=== PATIENT | female | born 1980 | race Caucasian/White ===

== ENCOUNTER → 2021-07-23 | Outpatient (CLI) | payer OTHER ==
[2021-07-23 16:51] LABS: BASOPHILS # (AUTO) 0.1 10^3/uL (0.0-0.1); BASOPHILS % (AUTO) 1 % (0-10); EOSINOPHILS # (AUTO) 0.2 10^3/uL (0.0-0.3); EOSINOPHILS % (AUTO) 2 % (0-10); HEMATOCRIT 32 % (35-52); HEMOGLOBIN 9.8 g/dL (11.5-16.0); LYMPHOCYTES # (AUTO) 2.7 10^3/uL (1.0-4.0); LYMPHOCYTES % (AUTO) 29 % (12-44); MEAN CORPUSCULAR HEMOGLOBIN 26 pg (25-34); MEAN CORPUSCULAR HGB CONC 31 g/dL (32-36); MEAN CORPUSCULAR VOLUME 84 fL (80-99); MEAN PLATELET VOLUME 9.5 fL (9.0-12.2); MONOCYTES # (AUTO) 0.6 10^3/uL (0.0-1.0); MONOCYTES % (AUTO) 6 % (0-12); NEUTROPHILS # (AUTO) 5.7 10^3/uL (1.8-7.8); NEUTROPHILS % (AUTO) 62 % (42-75); PLATELET COUNT 488 10^3/uL (130-400); WHITE BLOOD COUNT 9.3 10^3/uL (4.3-11.0)
== END ==
LOC: LABNPT 16:34
PROVIDERS: ATTEND Obstetrics & Gynecology
DX: N93.9 Abnormal uterine and vaginal bleeding, unspecified (principal)
CPT/HCPCS: 84443; 85025

== ENCOUNTER 2021-07-26 05:38 | Outpatient (CLI) | payer SELFPAY ==
[~2021-07-26] VITALS: Ht 170 cm; Wt 79.5 kg
== END 2021-07-26 09:36 | disposition home or self-care (01) ==
LOC: PREOP 05:38
PROVIDERS: ATTEND Obstetrics & Gynecology
DX: Z01.818 Encounter for other preprocedural examination (principal)

== ENCOUNTER 2021-07-29 06:16 | Day surgery (SDC) | payer OTHER ==
[~2021-07-29] VITALS: Ht 170 cm; Wt 79.5 kg
[2021-07-29] VITALS (9 sets, daily range): BP systolic 100–131; BP diastolic 65–88
[2021-07-29] MEDS ORDERED: HYDROCORTISONE 100 MG/2 ML (Solu-CORTEF) VIAL IV PRN (06:45)
[2021-07-29] MEDS ORDERED: IRON DEXTRAN INJECTION 1,000 MG in NS (IVPB) 250 ML IV ONE (06:45)
[2021-07-29] MEDS ORDERED: diphenhydrAMINE 50 MG/ML INJ (BENADRYL) IV PRN (06:45)
[2021-07-29] MEDS ORDERED: NS IV 500 ML 500 ML IV SCH (06:45)
[2021-07-29] MEDS ORDERED: IRON DEXTRAN 25 MG/NS 6.25 ML TOTAL VOLUME IV ONE ×3 (06:45)
[2021-07-29] MEDS ORDERED: IRON DEXTRAN 1,000 MG/NS 250 ML IVPB IV ONE ×2 (06:45)
[2021-07-29] MEDS ORDERED: EPINEPHrine INJECTION 1 MG/ML AMP IM PRN (06:45)
[2021-07-29] MEDS ORDERED: RT-ALBUTEROL SULF 2.5 MG/3 ML PRE-MIX VIAL IH PRN (06:45)
[2021-07-29 06:56] LABS: BASOPHILS # (AUTO) 0.1 10^3/uL (0.0-0.1); BASOPHILS % (AUTO) 1 % (0-10); EOSINOPHILS # (AUTO) 0.1 10^3/uL (0.0-0.3); EOSINOPHILS % (AUTO) 1 % (0-10); HEMATOCRIT 32 % (35-52); HEMOGLOBIN 10.1 g/dL (11.5-16.0); LYMPHOCYTES # (AUTO) 2.1 10^3/uL (1.0-4.0); LYMPHOCYTES % (AUTO) 21 % (12-44); MEAN CORPUSCULAR HEMOGLOBIN 26 pg (25-34); MEAN CORPUSCULAR HGB CONC 32 g/dL (32-36); MEAN CORPUSCULAR VOLUME 80 fL (80-99); MEAN PLATELET VOLUME 9.3 fL (9.0-12.2); MONOCYTES # (AUTO) 0.7 10^3/uL (0.0-1.0); MONOCYTES % (AUTO) 7 % (0-12); NEUTROPHILS # (AUTO) 6.9 10^3/uL (1.8-7.8); NEUTROPHILS % (AUTO) 70 % (42-75); PLATELET COUNT 494 10^3/uL (130-400); WHITE BLOOD COUNT 9.8 10^3/uL (4.3-11.0)
[2021-07-29] MEDS: LACTATED RINGERS 1,000 ML IV PRN ×2 (07:15→08:40)
[2021-07-29] MEDS ORDERED: BUPIVACAINE 0.25% 10 ML (SENSORCAINE) VIAL ONE (07:25)
[2021-07-29 07:30] LABS: POTASSIUM 4.1 MMOL/L (3.6-5.0)
[2021-07-29 07:36] LABS: CREATININE SERUM 0.73 MG/DL (0.60-1.30)
[2021-07-29] MEDS ORDERED: LIDOCAINE PF 2% 5 ML (XYLOCAINE) VIAL ONE (08:45)
[2021-07-29] MEDS ORDERED: proPOfol 200 MG/20 ML (DIPRIVAN) VIAL IV ONE (08:45)
[2021-07-29] MEDS ORDERED: ONDANSETRON 4 MG/2 ML (SDV) Z0FRAN ONE (08:45)
[2021-07-29] MEDS ORDERED: MIDAZOLAM 2 MG/2 ML (VERSED) VIAL ONE (08:45)
[2021-07-29] MEDS ORDERED: fentaNYL INJ 100 MCG/2 ML AMP ONE (08:45)
[2021-07-29] MEDS ORDERED: SEVOFLURANE (ULTANE) 15 ML INHAL SOLN ONE ×2 (08:45→09:34)
--- NOTE | 2021-07-29 08:59 | Progress Note-Pre Operative ---
Pre-Operative Progress Note H&P Reviewed The H&P was reviewed, patient examined and no changes noted. Date Seen by Provider: July 29, 2021 Time Seen by Provider: 07:30 Date H&P Reviewed: July 29, 2021 Time H&P Reviewed: 07:30 Pre-Operative Diagnosis: AUB, Chronic blood loss anemia ANGIE LEHMAN DO July 29, 2021 08:59
[2021-07-29] MEDS ORDERED: D5 LR IV SOLUTION 1,000 ML IV SCH (09:00)
[2021-07-29] MEDS ORDERED: HYDROcodone/APAP 5 MG/325 MG (LORTAB) TAB PO PRN (09:00)
[2021-07-29] MEDS ORDERED: ONDANSETRON 4 MG/2 ML (SDV) Z0FRAN IVP PRN ×2 (09:00→09:45)
[2021-07-29] MEDS ORDERED: KETOROLAC 30 MG/ML VIAL IVP ONE (09:00)
--- NOTE | 2021-07-29 09:01 | Discharge Inst-Women's Service ---
Discharge Inst-Women's Serv Depart Medication/Instructions New, Converted or Re-Newed RX: Transmitted to Pharmacy Problems Reviewed?: Yes Consults/Follow Up Additional Follow Up: Yes Activity Activity: Activity as Tolerated Driving Instructions: No Driving for 1 Week NO SMOKING: NO SMOKING Nothing Inside Vagina: No Douching, No [place], No Tampons Diet Discharge Diet: No Restrictions Symptoms to Report to : Bleeding Excessive, Pain Increased, Fever Over 101 Degrees F, Vaginal Bleeding Increase, Questions/Concerns For Any Problems or Questions: Contact Your Physician Skin/Wound Care Infection Signs and Symptoms: Increased Redness, Foul Odor of Wound, Increased Drainage, Skin Itchy or Has a Rash, Increased Swelling, Temperature Above 101 F ANGIE LEHMAN DO July 29, 2021 09:01
[2021-07-29] MEDS ORDERED: IBUP-1773 PO (09:03)
--- NOTE | 2021-07-29 09:42 | Anesthesia-General Post-Op ---
General Patient Condition Mental Status/LOC: Same as Preop Cardiovascular: Satisfactory Nausea/Vomiting: Absent Respiratory: Satisfactory Pain: Controlled Complications: Absent Post Op Complications Complications None Follow Up Care/Instructions Patient Instructions None needed. Anesthesia/Patient Condition Patient Condition Patient is doing well, no complaints, stable vital signs, no apparent adverse anesthesia problems. No complications reported per nursing. NICKOLAS GUTIERREZ CRNA July 29, 2021 09:42
[2021-07-29] MEDS ORDERED: MEPERIDINE (DEMEROL) INJ 50 MG/ML IVP ONE (09:45)
[2021-07-29] MEDS ORDERED: fentaNYL INJ 100 MCG/2 ML AMP IVP ONE (09:45)
[2021-07-29] MEDS ORDERED: morphine INJ 10 MG/ML 1ML (SYR OR VIAL) IVP ONE (09:45)
[2021-07-29] MEDS ORDERED: KETOROLAC 30 MG/ML VIAL ONE (09:49)
--- NOTE | 2021-07-29 15:43 | OPERATIVE REPORT ---
DATE OF SERVICE: 07/29/2021 PREOPERATIVE DIAGNOSES: 1. A 41-year-old female with abnormal uterine bleeding. 2. Chronic blood loss anemia. POSTOPERATIVE DIAGNOSES: 1. A 41-year-old female with abnormal uterine bleeding. 2. Chronic blood loss anemia. PROCEDURE: D and C. SURGEON: Angie Lehman DO ANESTHESIA: LMA general. ESTIMATED BLOOD LOSS: Minimal. URINE OUTPUT: 100 mL drained at the end of the procedure. FLUIDS: 1500 mL lactated Ringer's solution. FINDINGS: Normal appearing external female genitalia and a moderate amount of endometrial tissue collected on curetting. SPECIMEN SENT: Endometrial curettings. INDICATIONS FOR PROCEDURE: This 41-year-old female patient who had sought care in my office for feeling lightheaded and dizzy and weak and also having constant heavy periods, sometimes lasting 50 to 60 days. I discussed with the patient need for endometrial sampling due to her age and body habitus. Risks of the procedure were discussed with the patient in detail, both endometrial biopsy in the office and D and C. The patient wished to proceed with D and C as it would be another conservative measure of dealing with this as well as give us diagnostic value. Risk of the procedure and alternatives were discussed with the patient in detail. After all of her questions were answered, consent was obtained in the preoperative area, the patient was taken to the operating room. OPERATIVE REPORT IN DETAIL: Once in the operating room, anesthesia was found to be adequate. She was placed in dorsal lithotomy position, prepped and draped in normal sterile fashion where a timeout was performed. A weighted speculum inserted to the patient's vagina. Right angle retractor was used to visualize the cervix, which was grasped 12 o'clock position using a long Allis clamp. I then gently sound the uterine cavity, was found to be 8 cm. I then gently dilated the cervix using Hanks dilators to maximum dilatation of 1 cm. I performed paracervical block at this point using 0.25% Marcaine with 5 mL are injected into each site, which are 3 and 9 o'clock positions on the cervix. Care was taken to aspirate for injecting. I then gently perform curettage of the uterus and the endometrial curettings collected and sent as endometrial curettings. There was no active bleeding noted from the uterus after I am done curettings. I then removed the Allis clamp and weighted speculum, and everything was removed from the patient's vagina. The patient tolerated the procedure well and sent to recovery area in stable condition. Lap and sponge counts were correct at the end of procedure. Instrument counts correct as well. Job ID: [id number] DocumentID: [id number] Dictated Date: 07/29/2021 10:00:01 Head Swamper Date: 07/29/2021 15:42:39 Dictated By: ANGIE LEHMAN DO
== END 2021-07-29 11:15 | disposition home or self-care (01) ==
LOC: SDC 06:16
PROVIDERS: ATTEND Obstetrics & Gynecology
DX: N93.9 Abnormal uterine and vaginal bleeding, unspecified (principal); D50.0 Iron deficiency anemia secondary to blood loss (chronic); E66.9 Obesity, unspecified; N87.0 Mild cervical dysplasia; Z68.30 Body mass index [BMI] 30.0-30.9, adult
CPT/HCPCS: 36415; 80048; 84703; 85025; 86850; 86900; 86901; 87081

== ENCOUNTER 2021-08-23 05:35 | Outpatient (CLI) | payer SELFPAY ==
[~2021-08-23] VITALS: Ht 170 cm; Wt 79.5 kg
[~2021-08-23 05:35] MED LIST: IBUP-1773 PO
[2021-08-23] MEDS ORDERED: QUET50TA PO (09:47)
[2021-08-23] MEDS ORDERED: MULT-436 PO (09:47)
[2021-08-23] MEDS ORDERED: ARIP10TA10 PO (09:47)
[2021-08-23] MEDS ORDERED: IRON15TA3 PO (09:47)
== END 2021-08-23 10:20 | disposition home or self-care (01) ==
LOC: PREOP 05:35
PROVIDERS: ATTEND Obstetrics & Gynecology
DX: Z01.818 Encounter for other preprocedural examination (principal)

== ENCOUNTER 2021-08-26 05:57 | Day surgery (SDC) | payer OTHER ==
[2021-08-26] VITALS (9 sets, daily range): BP systolic 119–140; BP diastolic 64–83
[~2021-08-26] VITALS: Ht 170 cm; Wt 79.5 kg
[~2021-08-26 05:57] MED LIST changes: +ARIP10TA10 PO; +IRON15TA3 PO; +MULT-436 PO; +QUET50TA PO
[2021-08-26] MEDS ORDERED: CLINDAMYCIN 900 MG/50 ML IVPB 50 ML IV ONE (06:15)
[2021-08-26] MEDS ORDERED: metroNIDAZOLE 500MG/100ML IVPB 100 ML IV ONE (06:15)
[2021-08-26 06:36] LABS: BASOPHILS # (AUTO) 0.1 10^3/uL (0.0-0.1); BASOPHILS % (AUTO) 1 % (0-10); EOSINOPHILS # (AUTO) 0.1 10^3/uL (0.0-0.3); EOSINOPHILS % (AUTO) 1 % (0-10); HEMATOCRIT 43 % (35-52); HEMOGLOBIN 13.8 g/dL (11.5-16.0); LYMPHOCYTES # (AUTO) 2.4 10^3/uL (1.0-4.0); LYMPHOCYTES % (AUTO) 27 % (12-44); MEAN CORPUSCULAR HEMOGLOBIN 27 pg (25-34); MEAN CORPUSCULAR HGB CONC 32 g/dL (32-36); MEAN CORPUSCULAR VOLUME 86 fL (80-99); MEAN PLATELET VOLUME 8.9 fL (9.0-12.2); MONOCYTES # (AUTO) 0.5 10^3/uL (0.0-1.0); MONOCYTES % (AUTO) 5 % (0-12); NEUTROPHILS % (AUTO) 66 % (42-75); PLATELET COUNT 396 10^3/uL (130-400)
[2021-08-26] MEDS ORDERED: SEVOFLURANE (ULTANE) 15 ML INHAL SOLN ONE ×3 (06:50→09:37)
[2021-08-26] MEDS ORDERED: LIDOCAINE PF 2% 5 ML (XYLOCAINE) VIAL ONE (06:50)
[2021-08-26] MEDS ORDERED: proPOfol 200 MG/20 ML (DIPRIVAN) VIAL IV ONE (06:50)
[2021-08-26] MEDS ORDERED: fentaNYL INJ 100 MCG/2 ML AMP ONE (06:50)
[2021-08-26] MEDS ORDERED: ONDANSETRON 4 MG/2 ML (SDV) Z0FRAN ONE (06:50)
[2021-08-26] MEDS ORDERED: MIDAZOLAM 2 MG/2 ML (VERSED) VIAL ONE (06:51)
[2021-08-26] MEDS: LACTATED RINGERS 1,000 ML IV PRN ×3 (07:08→09:44)
--- NOTE | 2021-08-26 07:14 | Progress Note-Pre Operative ---
Pre-Operative Progress Note H&P Reviewed The H&P was reviewed, patient examined and no changes noted. Date Seen by Provider: Aug 26, 2021 Time Seen by Provider: 06:55 Date H&P Reviewed: Aug 26, 2021 Time H&P Reviewed: 07:00 Pre-Operative Diagnosis: AUB, Chronic blood loss anemia, Recurrent cervical dysplasia ANGIE LEHMAN DO Aug 26, 2021 07:14
[2021-08-26] MEDS ORDERED: DOCUSATE SODIUM 100 MG (COLACE) CAP PO PRN (07:15)
[2021-08-26] MEDS ORDERED: NALOXONE 0.4 MG/ML 1 ML (NARCAN) VIAL IV PRN (07:15)
[2021-08-26] MEDS ORDERED: SIMETHICONE 80 MG (MYLICON) CHEW PO PRN (07:15)
[2021-08-26] MEDS ORDERED: CHLORASEPTIC LOZENGE MM PRN (07:15)
[2021-08-26] MEDS ORDERED: IBUPROFEN 600 MG (MOTRIN) TAB PO PRN (07:15)
[2021-08-26] MEDS ORDERED: ANTACID SUSP 30 ML UDC (MYLANTA) PO PRN (07:15)
[2021-08-26] MEDS ORDERED: ZOLPIDEM 5 MG (AMBIEN) TAB PO PRN (07:15)
[2021-08-26] MEDS ORDERED: ONDANSETRON 4 MG/2 ML (SDV) Z0FRAN IV PRN (07:15)
[2021-08-26] MEDS ORDERED: BUPIVACAINE 0.25% 10 ML (SENSORCAINE) VIAL ONE (07:20)
[2021-08-26] MEDS ORDERED: PHENYLEPHRINE 100 MCG/ML 10 ML (ANESTHESIA) SYR ONE (08:22)
--- NOTE | 2021-08-26 08:26 | Discharge Inst-Women's Service ---
Discharge Inst-Women's Serv Depart Medication/Instructions New, Converted or Re-Newed RX: Transmitted to Pharmacy Final Diagnosis POD 1 RATLH Problems Reviewed?: Yes Consults/Follow Up Additional Follow Up: Yes Orders/Referrals Dr. Song/ Ange in7-10 days and in 8 weeks Activity Activity: Activity as Tolerated Driving Instructions: No Driving for 1 Week NO SMOKING: NO SMOKING Nothing Inside Vagina: No Douching, No [place], No Tampons Diet Discharge Diet: No Restrictions Symptoms to Report to : Bleeding Excessive, Pain Increased, Fever Over 101 Degrees F, Vaginal Bleeding Increase, Questions/Concerns For Any Problems or Questions: Contact Your Physician Skin/Wound Care Infection Signs and Symptoms: Increased Redness, Foul Odor of Wound, Increased Drainage, Skin Itchy or Has a Rash, Increased Swelling, Temperature Above 101 F Operative Area Clean and Dry: Keep Incision Clean/Dry Stitches/Marily/Dermabond: Dermabond, Care of Stitches Bathing Instructions: ANGIE Kumari DO Aug 26, 2021 08:26
[2021-08-26] MEDS ORDERED: IBUP-844 PO (08:27)
[2021-08-26] MEDS ORDERED: BENZ1LOZ74 MM (08:27)
[2021-08-26] MEDS ORDERED: DOCU100C37 PO (08:27)
[2021-08-26] MEDS ORDERED: SIME80TA16 PO (08:27)
[2021-08-26] MEDS ORDERED: HYDR-34 PO (08:27)
[2021-08-26] MEDS: KETOROLAC 30 MG/ML VIAL IVP PRN ×2 (09:30→15:12)
[2021-08-26] MEDS ORDERED: GLYCOPYRROLATE 0.2 MG/ML (ROBINUL) 2 ML VIAL ONE ×2 (09:32→09:37)
[2021-08-26] MEDS ORDERED: KETOROLAC 30 MG/ML VIAL ONE (09:34)
[2021-08-26] MEDS ORDERED: NEOSTIGMINE 3 MG/3 ML VIAL ONE (09:37)
[2021-08-26] MEDS ORDERED: HYDROmorphone 2 MG/ML VIAL (DILAUDID) ONE ×2 (09:49→10:15)
[2021-08-26] MEDS ORDERED: ONDANSETRON 4 MG/2 ML (SDV) Z0FRAN IVP PRN (10:00)
[2021-08-26] MEDS: HYDROmorphone 2 MG/ML VIAL (DILAUDID) IV ONE ×2 (10:03→10:16)
[2021-08-26] MEDS: LACTATED RINGERS 1,000 ML IV SCH ×2 (10:18→12:01)
[2021-08-26] MEDS: HYDROcodone/APAP 7.5 MG/325 MG (LORTAB, LORCET PLUS) TABLET PO PRN ×2 (12:04→13:42)
[2021-08-26] MEDS ORDERED: CEPACOL SORE THROAT-COUGH LOZENGE PO PRN (12:30)
--- NOTE | 2021-08-26 18:23 | OPERATIVE REPORT ---
DATE OF SERVICE: PREOPERATIVE DIAGNOSES: 1. A 41-year-old female with abnormal uterine bleeding. 2. Chronic blood loss anemia. 3. Recurrent cervical dysplasia. POSTOPERATIVE DIAGNOSES: 1. A 41-year-old female with abnormal uterine bleeding. 2. Chronic blood loss anemia. 3. Recurrent cervical dysplasia. PROCEDURE: Robotic-assisted total laparoscopic hysterectomy with bilateral salpingectomy. SURGEON: Dr. Brennon Song. PUBLIC SCHOOL TEACHER: Ange Ruffin DNP, who was necessary for manipulation and retraction throughout the procedure. ANESTHESIA: General endotracheal. ESTIMATED BLOOD LOSS: Minimal. URINE OUTPUT: 100 mL clear at the end of procedure. FLUIDS: 1200 mL lactated Ringer's solution. FINDINGS: Grossly normal appearing external female genitalia, normal appearing cervix, grossly normal appearing uterus, multicystic appearing right ovary, otherwise grossly normal appearing ovaries, bilateral tubes consistent with history of tubal ligation with filche clip placement. SPECIMEN SENT: Uterus, bilateral fallopian tubes. INDICATIONS FOR PROCEDURE: This 41-year-old female is a patient who had sought my care due to recurrent issues with needing iron transfusions and chronic blood loss anemia secondary to heavy periods. Please see my preoperative H and P for complete details pertaining to the patient's indications for procedure however, alternatives were discussed with the patient including more conservative measures; however, the patient wished to proceed with more definitive measures despite risk. Risk of the procedure and recovery timeframe were all discussed with the patient in detail preoperatively including risk of bleeding, infection, damaging surrounding structures including, but not limited to bowel, bladder, ureter, kidneys, possible need for reoperations, recovery timeframe, risk from anesthesia and even . After everything was discussed with the patient in detail, consent was obtained in the preoperative area and the patient was taken to the operating room. OPERATIVE REPORT IN DETAIL: Once in the operating room, anesthesia was found to be adequate. She was placed in dorsal lithotomy position, prepped and draped in normal sterile fashion. A timeout was performed. Pink catheter was placed using sterile technique. A weighted speculum inserted to the patient's vagina, which allows me to visualize the cervix, which I placed a 0 Vicryl suture through the anterior lip of the cervix and used this as my retraction point. I then gently sound the uterine cavity, was found to be 8 cm. I placed a Nanda uterine manipulator with an 8 cm manipulation tip and a 3.5 cm colpotomy ring. The manipulator tip was advanced into the uterus where the balloon was deployed and the colpotomy ring was advanced around the vaginal fornix. I then removed all the other instruments from the patient's vagina, performed change of gloves, turned my attention to the abdomen where subcostally at the midclavicular line on the left side, I introduced the Veress needle through the skin until intraperitoneal placement was confirmed using a saline drop test. An opening pressure of 4 mmHg was noted. I proceeded with CO2 insufflation to maximum pressure of 15 mmHg, at which point I infiltrated the infraumbilical area using 0.25% Marcaine to make an 8 mm incision with a knife. I directed a blunt laparoscopic da Paris camera trocar through this incision, intraperitoneal placement was confirmed using da Paris laparoscope. There was no evidence of damage upon my entry site. A brief scan of the upper abdominal anatomy appears to be grossly normal. There was no evidence of damage upon the Veress entry site and the Veress needle was removed at that point. I then had the patient placed in steep Trendelenburg where I am able to visualize all my pelvic anatomy as defined in my findings above. I placed two lateral trocars using both 8 mm trocars approximately 10 cm lateral to my infraumbilical trocar. The skin is infiltrated using 0.25% Marcaine with 8 mm incisions were made with a knife and the trocars were placed under direct visualization of the laparoscope. Once both these trocars were in place, I bring in the da Paris robot and docked in appropriate fashion, placing the SynchroSeal device in left hand and monopolar randall in the right hand. I then took my place at the operative console and performed the following dissection bilaterally. Starting at the uteroovarian ligament, I sealed and transected this using the SynchroSeal device. I then created a window in the mesosalpinx, took this laterally, amputating the fallopian tube from its surrounding blood supply. I then grasped the round ligament, so I sealed and transected using the SynchroSeal device. I then grasped the entire broad ligament, which I sealed and transected using the SynchroSeal device. I do this down to the level of the lower uterine segment, at which point I the anterior and posterior leaflets of the broad ligament. Anterior leaflet dissection was taken around the anterior vaginal fornix. Posterior leaflets was taken around the posterior vaginal fornix. This allows me to skeletonize the uterine vessels laterally, which I sealed and transected using the SynchroSeal device. I then created a colpotomy at 12 o'clock position using monopolar randall and took this circumferentially around the vaginal fornix amputating the cervix away from the vagina. The entire specimen was then removed through the vagina. I then closed the lateral vaginal apices of the vaginal cuff using 2-0 Vicryl suture in a [id number] fashion colposuspending into the uterosacral ligaments. I then closed the remainder of the vaginal cuff using 2-0 V-Loc in a running fashion, after which there was no active bleeding noted from any of my dissection planes. I then undocked the da [place] robot and proceeded with remainder of the case laparoscopically. I copiously irrigated the pelvis using normal saline. Once again, there was no active bleeding noted from any of my dissection planes. I placed Surgiflo hemostatic agent over all my planes of dissection. I had the patient taken out of steep Trendelenburg where I removed the lateral trocars under direct visualization of the laparoscope. The infraumbilical trocars left in place to release the remainder of the insufflation and to introduce 10 mL of 0.25% Marcaine into peritoneal cavity for postoperative pain management. I then removed this trocar as well. The skin of the three incisions were then reapproximated using 4-0 Monocryl in interrupted subcuticular stitches. Dermabond was applied to all incision sites including the puncture wound of the Veress needle and Band-Aids were placed over all of these incisions as well. Pink catheter was left in place. The patient tolerated the procedure well and sent to recovery area in stable condition. Lap and sponge counts were correct at the end of the procedure. Instrument counts correct as well. Two grams of Ancef and 500 mg of Flagyl were given preoperatively for infection prophylaxis. Job ID: [id number] DocumentID: [id number] Dictated Date: 08/26/2021 09:48:39 Linux Systems Administrator Date: 08/26/2021 18:22:29 Dictated By: DO SALVATORE WALDEN
== END 2021-08-26 15:45 | disposition home or self-care (01) ==
LOC: SDC 05:57 → WS 11:31 → SDC 15:45
PROVIDERS: ATTEND Obstetrics & Gynecology
DX: N80.0 Endometriosis of uterus (principal); N72 Inflammatory disease of cervix uteri; D50.0 Iron deficiency anemia secondary to blood loss (chronic)
CPT/HCPCS: 36415; 84703; 85025; 86850; 86900; 86901; 87081; 94664